=== PATIENT | female | born 1945 | race Asian ===

== ENCOUNTER 2018-04-06 06:58 | Day surgery (SDC) | payer OTHER ==
[2018-04-06 07:37] VITALS: BMI 23.0
[2018-04-06 09:01] VITALS: TEMP 97.8
[2018-04-06] MEDS ORDERED: ACETAMINOPHEN 325 MG TABLET (FP) ONE (09:28)
[2018-04-06 10:21] VITALS: BP 142/69; PULSE 46
--- NOTE | 2018-04-07 11:44 | PATH ---
Surgical Pathology Report Patient Name: [facility]. Rec. #: [id number] /Age/Gender: 1945 (Age: 72) / F Account: [id number] Location: [facility]-ENDOSCOPY Taken: 04/06/2018 Received: 04/06/2018 Reported: 04/07/2018 Physicians: Gunnar Restrepo M.D. Specimen(s) Received A: BX DUODENUM B: BX GASTRIC ANTRUM C: BX ANTRUM POLYP D: RECTAL POLYP Clinical History History of colon polyps/gastric intestinal metaplasia Postoperative diagnosis: Gastric polyps, diverticulosis Final Diagnosis A. DUODENUM, SECOND PORTION AND BULB, BIOPSY: DUODENAL MUCOSA WITHOUT SIGNIFICANT PATHOLOGIC FINDINGS. B. STOMACH, ANTRUM AND BODY, BIOPSY: GASTRIC ANTRAL AND BODY MUCOSA WITH MILD TO MODERATE CHRONIC GASTRITIS AND INTESTINAL METAPLASIA. IMMUNOHISTOCHEMICAL STAIN FOR H. PYLORI IS NEGATIVE. C. STOMACH, ANTRAL POLYP, BIOPSY: POLYPOID GASTRIC ANTRAL MUCOSA WITH MILD CHRONIC GASTRITIS, RARE DILATED GLAND, AND MILD FOVEOLAR HYPERPLASIA SUGGESTIVE OF HYPERPLASTIC POLYP. IMMUNOHISTOCHEMICAL STAIN FOR H. PYLORI IS NEGATIVE. D. RECTUM, POLYP, BIOPSY: TUBULAR ADENOMA. Electronically Signed Cristina Cohen M.D. Gross Description A. Received in formalin, labeled "biopsy second portion of duodenum and bulb" are 3 mosley, irregular portions of soft tissue ranging from 0.3-0.4 cm. in greatest dimension. The specimens are submitted in toto in one cassette. B. Received in formalin, labeled "gastric antrum and body" are 5 ranging from mosley, irregular portions of soft tissue ranging from 0.2-0.6 cm. in greatest dimension. The specimens are submitted in toto in one cassette. C. Received in formalin, labeled "antral polyp" are 2 mosley, irregular portions of soft tissue measuring 0.1 and 0.5 cm. in greatest dimension. The specimens are submitted in toto in one cassette. D. Received in formalin, labeled "polyp rectum" are 2 mosley, irregular portions of soft tissue measuring 0.2 and 0.3 cm. in greatest dimension. The specimens are submitted in toto in one cassette. 04/06/201804/06/2018
== END 2018-04-06 10:23 | disposition home or self-care (01) ==
LOC: JASU-ENDO 06:58
PROVIDERS: ATTEND Internal Medicine Gastroenterology
PROC: 0DB68ZX Excision of Stomach, Via Natural or Artificial Opening Endoscopic, Diagnostic (ICD-10-PCS; 2018-04-06)
PROC: 0DBP8ZX Excision of Rectum, Via Natural or Artificial Opening Endoscopic, Diagnostic (ICD-10-PCS; principal; 2018-04-06 08:00)
DX: Z12.11 Encounter for screening for malignant neoplasm of colon (principal); K62.1 Rectal polyp; K64.8 Other hemorrhoids; K57.30 Diverticulosis of large intestine without perforation or abscess without bleeding; K31.7 Polyp of stomach and duodenum
CPT/HCPCS: 88305-TC; 88342-TC

== ENCOUNTER 2019-12-25 18:53 | Observation (INO) | payer OTHER ==
--- NOTE | 2019-12-25 19:21 | PDOC ---
Rapid Medical Evaluation Chief Complaint: Headache Time Seen by Provider: 12/25/19 19:14 Medical Evaluation: Allergies Allergy/AdvReac Type Severity Reaction Status Date / Time aspirin Allergy Verified 05/03/13 23:23 latex Allergy Verified 04/05/18 14:11 Penicillins Allergy Verified 05/03/13 23:23 12/25/19 19:16 74 YEAR OLD female c/o headache, dizziness,blurred vision, chest discomfort since last night at 12 am. patient took amlodipine at 3.30 am (extra dose) and took morning dose of b/p meds. patient reported b/p normal at 11.30 am. afternoon noted to have high blood pressure now with headache and dizziness. PMHX: high blood pressure, hypercholestremia PCP: Dr. August (henderson) PE: patient alert ox3. A: hypertension; headache/ dizziness P: labs EKG 12/25/19 19:21 Discharge Disposition - Diagnosis Dizziness Headache Qualifiers: Headache type: unspecified Headache chronicity pattern: unspecified pattern Intractability: not intractable Qualified Code(s): R51 - Headache - Referrals - Patient Instructions - Post Discharge Activity
--- NOTE | 2019-12-25 20:16 | PDOC ---
History of Present Illness - General Chief Complaint: Headache Stated Complaint: HYPERTENSION/HEADACHE/DIZZY Time Seen by Provider: 12/25/19 19:14 - History of Present Illness Initial Comments: 12/25/19 20:16 74yo F PMH HTN p/w multiple episodes of chest discomfort, one episode of dizziness, one episode of blurry vision, and one episode of SBP to 170s. Over the past few days she has had trouble sleeping. Today she awoke from a nap and had blurry vision and then later felt dizzy when trying to stand up from sitting. While dizzy she took her BP and was discovered to be in the 170s. She is usually in the 120s-130s. Denies LOC, n/v/fever/cough/sore throat/ leg swelling/ recent illness Since July she has had PFT (normal), halter monitoring (Overall normal w/ few ectopic atrial beats), and claims angiogram that was normal. PMH: HTN PSH: total hysterectomy FHx: VT in father SHx: no ETOH, tobacco, street drugs 12/25/19 22:40 ROS CONSTITUTIONAL: Absent: fever, chills, diaphoresis, generalized weakness HEENT: Absent: rhinorrhea, nasal congestion, throat pain CARDIOVASCULAR: Absent: syncope, lightheadedness, peripheral edema RESPIRATORY: Absent: cough, shortness of breath, dyspnea with exertion, orthopnea, wheezing, stridor, hemoptysis GASTROINTESTINAL: Absent: abdominal pain, abdominal distension, nausea, vomiting GENITOURINARY: Absent: dysuria, vaginal bleeding MUSCULOSKELETAL: Absent: myalgia, SKIN: Absent: rash, itching, pallor NEUROLOGIC: Absent: focal weakness or paresthesias PSYCHIATRIC: Absent: anxiety PE GENERAL: Well developed, well nourished. Awake and alert. No acute distress. HEENT: Normocephalic, atraumatic. PERRLA, EOMI. No conjunctival pallor. Sclera are non- icteric. Moist mucous membranes. Oropharynx is clear. NECK: Supple. Full ROM. No JVD. CARDIOVASCULAR: Regular rate and rhythm. No murmurs, rubs, or gallops. Distal pulses are 2+ and symmetric. PULMONARY: No evidence of respiratory distress. Lungs clear to auscultation bilaterally. No wheezing, rales or rhonchi. ABDOMINAL: Soft. Non-tender. Non-distended. No rebound or guarding. No organomegaly. Normoactive bowel sounds. MUSCULOSKELETAL Normal range of motion at all joints. No bony deformities or tenderness. No CVA tenderness. EXTREMITIES: No cyanosis. No clubbing. No edema. No calf tenderness. SKIN: Warm and dry. Normal capillary refill. No rashes. No jaundice. NEUROLOGICAL: Alert, awake, appropriate. . Gait is normal without ataxia. PSYCHIATRIC: Cooperative. Good eye contact. Worried mood. a/p 74yo F w/PMH HTN p/w 1episode of blurry vision + dizziness at home associated w/ elevated BP. Became hypertensive and reported chest discomfort around 1245. Repeated EKG and gave 0.4mg SL nitro. EKG showed no changes. Pt reported relief. plan: admit to tele obs. 12/25/19 22:46 12/26/19 03:09 12/26/19 03:10 Past History - Medical History Allergies/Adverse Reactions: Allergies Allergy/AdvReac Type Severity Reaction Status Date / Time aspirin Allergy Verified 05/03/13 23:23 latex Allergy Verified 04/05/18 14:11 Penicillins Allergy Verified 05/03/13 23:23 Home Medications: Ambulatory Orders Amlodipine Besylate [Norvasc -] 5 mg PO DAILY 04/05/18 Calcium Carbonate/Vitamin D3 [Calcium 500-Vit D3 125 Caplet] 1 each PO DAILY 04/05/18 Cholecalciferol (Vitamin D3) [Vitamin D3] 5,000 unit PO WEEKLY 04/05/18 Glucosamine Sulfate Dipot Chlr [Glucosamine] 1,000 mg PO DAILY 04/05/18 Losartan Potassium 25 mg PO HS 04/05/18 Multivitamin [Multiple Vitamins] 1 each PO DAILY 04/05/18 Anemia: No Asthma: No Cancer: No Cardiac Disorders: No CVA: No COPD: No CHF: No Dementia: No Diabetes: No GI Disorders: Yes (GERD, HIATAL HERNIA, GASTRITIS W/ METAPLASIA, EXCISION ADENOMAS, DIVERTICUL) Disorders: No HTN: Yes Hypercholesterolemia: Yes Liver Disease: No Seizures: No Thyroid Disease: No - Surgical History Appendectomy: Yes Neurologic Surgery: No Orthopedic Surgery: Yes (RIGHT SHOULDER SURGERY, wrist & ankle fx) - Immunization History Immunization Up to Date: No - Psycho-Social/Smoking History Smoking Status: No Smoking History: Never smoked Have you smoked in the past 12 months: No Number of Cigarettes Smoked Daily: 0 - Substance Abuse Hx (Audit-C & DAST Scrn) How often the patient has a drink containing alcohol: Never Score: In Men: 4 or > Positive; In Women: 3 or > Positive: 0 Screen Result (Pos requires Nsg. Audit-10AR): Negative *Physical Exam - Vital Signs Last Vital Signs Temp Pulse Resp BP Pulse Ox 98.2 F 72 18 144/71 98 12/25/19 19:18 12/25/19 19:18 12/25/19 19:18 12/25/19 19:18 12/25/19 19:18 ED Treatment Course - LABORATORY CBC & Chemistry Diagram: 12/25/19 21:50 12/25/19 21:50 Discharge - Discharge Information Problems reviewed: Yes Clinical Impression/Diagnosis: Near syncope, Palpitations Condition: Stable - Admission Yes - Follow up/Referral - Patient Discharge Instructions - Post Discharge Activity
--- NOTE | 2019-12-25 20:23 | PDOC ---
Attending Attestation - Resident Resident Name: IvettChandrakant Senia - ED Attending Attestation I have performed the following: I have examined & evaluated the patient, The case was reviewed & discussed with the resident, I agree w/resident's findings & plan - HPI HPI: 12/25/19 22:00 see resident hpi - Physicial Exam PE: 12/25/19 22:00 see resident exam - Medical Decision Making 12/25/19 22:00 74-year-old female with chest discomfort, possible palpitations with lightheadedness yesterday Symptoms resolved, she has also had elevated blood pressures which is what prompted her to come to the emergency department Per patient she has been unable to contact her 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
[2019-12-25 22:40] LABS: BASO % 0.8 % (0-2.0); EOS % 0.5 % (0-4.5); HEMATOCRIT 37.8 % (32.4-45.2); LYMPH % 43.2 % (8-40); MCH 32.2 pg (25.7-33.7); MCHC 34.4 g/dl (32.0-36.0); MEAN CELL VOLUME 93.5 fl (80-96); MEAN PLT VOLUME 7.9 fl (7.5-11.1); MONO % 9.5 % (3.8-10.2); PLATELET COUNT 273 K/MM3 (134-434); RBC 4.04 M/mm3 (3.60-5.2); RDW 13.7 % (11.6-15.6); WHITE BLOOD COUNT 5.7 K/mm3 (4.0-10.0)
[2019-12-25 22:50] LABS: INR 0.85 (0.83-1.09)
[2019-12-25 22:53] LABS: ACTIVATED PTT 36.4 SECONDS (25.2-36.5)
[2019-12-25 23:25] LABS: ALBUMIN 4.3 g/dl (3.4-5.0); ALK PHOS 57 U/L (45-117); ANION GAP 7 MMOL/L (8-16); BILIRUBIN,TOTAL 0.5 mg/dL (0.2-1); BLOOD UREA NITROGEN 9.8 mg/dL (7-18); CALCIUM 9.2 mg/dL (8.5-10.1); CHLORIDE 106 mmol/L (98-107); CO2 28 mmol/L (21-32); CREATININE 0.5 mg/dL (0.55-1.3); GLUCOSE,RANDOM 103 mg/dL (74-106); MAGNESIUM 2.4 mg/dL (1.8-2.4); POTASSIUM 3.9 mmol/L (3.5-5.1); SGOT/AST 37 U/L (15-37); SGPT/ALT 31 U/L (13-61); SODIUM 140 mmol/L (136-145); TOT PROT 7.8 g/dl (6.4-8.2)
[2019-12-25] MEDS ORDERED: LACTATED RINGERS SOLUTION 1000 ML INFUS.BAG IV ONE (23:36)
--- NOTE | 2019-12-26 00:48 | PN ---
Teaching Attending Note Name of Resident: Nishant Gutierrez ATTENDING PHYSICIAN STATEMENT I saw and evaluated the patient. I reviewed the resident's note and discussed the case with the resident. I agree with the resident's findings and plan as documented. SUBJECTIVE: Patient is a 74 year old woman with a PMH of Total hysterectomy, GERD, Hiatal hernai, Penicillin allergy, Gastritis and HTN presenting with multiple episodes of chest discomfort, one episode of dizziness, one episode of blurry vision, and one episode of SBP to the 170s. Over the past few days she has had trouble sleeping. Today she awoke from a nap and had blurry vision and then later felt dizzy when trying to stand up from sitting. While dizzy she took her BP and discovered it to be in the 170s. She is usually in the 120s-130s. Patient denies LOC, shortness of breath, abdominal pain, palpitations, fever, chills, nausea, vomiting, diarrhea, constipation, dysuria, frequency, urgency, melena, hematochezia or hematuria. 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 Denies alcohol, tobacco or illicit drug use. No sick contacts or recent travels. Has family history of CVA and HTN in both parents and DM in father. OBJECTIVE: Alert Vital Signs Period Temp Pulse Resp BP Sys/Wilkerson Pulse Ox Last 24 Hr 98.2 F-98.3 F 64-72 18-18 144-165/71-78 96-100 HEENT: No Jaundice, eye redness or discharge, PERRLA, EOMI. Normocephalic, atraumatic. External ears are normal and hearing is grossly intact. No nasal discharge. Neck: Supple, nontender. No palpable adenopathy or thyromegaly. No JVD Chest: Good effort. Clear to auscultation and percussion. Heart: Regular. No S3, rub or murmur Abdomen: Not distended, soft, nontender and no HSM. No rebound or guarding. Normal bowel sounds. Ext: Peripheral pulses intact. No leg edema. Skin: Warm and dry. No petechiae, rash or ecchymosis. Neuro: Alert. Oriented x3. CN 2-12 grossly intact. Sensation grossly intact in all four extremities and DTR are symmetric. Psych: Appropriate mood and affect. Good insight. Home Medications Medication Instructions Recorded Amlodipine Besylate [Norvasc -] 5 mg PO DAILY 04/05/18 Calcium Carbonate/Vitamin D3 1 each PO DAILY 04/05/18 [Calcium 500-Vit D3 125 Caplet] Cholecalciferol (Vitamin D3) 5,000 unit PO WEEKLY 04/05/18 [Vitamin D3] Glucosamine Sulfate Dipot Chlr 1,000 mg PO DAILY 04/05/18 [Glucosamine] Losartan Potassium 25 mg PO HS 04/05/18 Multivitamin [Multiple Vitamins] 1 each PO DAILY 04/05/18 Abnormal Lab Results 12/25/19 12/25/19 21:50 21:50 Lymphocytes % 43.2 H Anion Gap 7 L Creatinine 0.5 L TSH 3.77 H Current Medications Generic Name Dose Route Start Last Admin Trade Name Freq PRN Reason Stop Dose Admin Amlodipine Besylate 5 mg 12/26/19 10:00 Norvasc - PO DAILY [facility] Enoxaparin Sodium 40 mg 12/26/19 10:00 Lovenox - SQ DAILY [facility] HCTZ/Losartan Potassium 1 tab 12/26/19 10:00 Hyzaar - PO DAILY [facility] Multivitamins/Minerals/Vitamin C 1 tab 12/26/19 10:00 Tab-A-Vit - PO DAILY [facility] Non-Formulary Medication 1 each 12/26/19 10:00 Calcium Carbonate/Vitamin D3 [Calcium 500-Vit D3 125 Caplet] PO DAILY [facility] Non-Formulary Medication 1,000 mg 12/26/19 10:00 Glucosamine Sulfate Dipot Chlr [Glucosamine] PO DAILY [facility] Non-Formulary Medication 5,000 unit 12/26/19 01:00 Cholecalciferol (Vitamin D3) [Vitamin D3] PO WEEKLY KAREN Pantoprazole Sodium 20 mg 12/26/19 10:00 Protonix - PO DAILY [facility] ASSESSMENT AND PLAN: 1. Uncontrolled hypertension - Symptoms may be related to poorly controlled hypertension. No acute abnormality on CXR. Noncontrast head CT scan showed volume loss but no evidence of acute intracranial pathology. EKG shows NSR at 71/minute and QTc [address]-T wave changes. Initial troponin is negative. Will admit to telemetry, trend troponin, get ECHO, free T4, carotid doppler, fasting lipids, brain MRI, do neurochecks and implement fall/aspiration/seizure precautions. Consult Cardiology/PT/Neurology. Considering her unwillingness to take medications, will recommend stopping "non essential" drugs like Glucosamine, Multivitamins and Vitamin D3. Will restart suitable outpatient antihypertensive drugs and give HCTZ/Losartan combination to enhance adherence. Subsequently, will revise regimen to ensure [id number] excellent BP control. Patient counseled on the injurious effects of uncontrolled hypertension. Nonpharmacologic measures to control hypertension like weight loss, salt restriction and exercise stressed. Importance of adherence to treatment regimen and attainment of normotension emphasized. Viral testing for COVID-19 ordered and patient placed on airborne, droplet and contact isolation. Will continue comprehensive care for all of patients comorbid conditions. 2. DVT prophylaxis - Lovenox 40 mg SQ q 24 hours. 3. Advance directives - Full code
[2019-12-26] MEDS ORDERED: NITROGLYCERIN SUBLINGUAL 1/150 0.4 MG TAB SL ONE (01:02)
[2019-12-26] MEDS ORDERED: NITROGLYCERIN SUBLINGUAL 1/150 0.4 MG TAB ONE (01:07)
[2019-12-26 01:37] LABS: PH,URINE 6.5 (5.0-8.0); URINE APPEARANCE CLEAR; URINE BILIRUBIN NEGATIVE (NEGATIVE); URINE COLOR YELLOW; URINE GLUCOSE (UA) NEGATIVE (NEGATIVE); URINE KETONE NEGATIVE (NEGATIVE); URINE LEUK ESTERASE NEGATIVE (NEGATIVE); URINE NITRITE NEGATIVE (NEGATIVE); URINE PROTEIN NEGATIVE (NEGATIVE); URINE UROBILINOGEN 0.2 mg/dL (0.2-1.0)
--- NOTE | 2019-12-26 05:15 | HP ---
HISTORY OF PRESENT ILLNESS: This is a 74 y/o F with a PMHx GERD, gastritis and HTN now presenting to the ED with multiple episodes of pressure-like substernal chest discomfort. Usually gradual in onset, non radiating, relieved by rest and nitroglycerine. Usually accompanied by DUTTON, dizziness, blurry vision and a SBP up to the 170s. Pt says she whenever she experiences the symptoms, it signals to her that her BP is elevated and she is usually right. She notes that she doesn't like taking many meds and has been refusing to allow her apiculture teacher to add a new med since withdrawing her atenolol due to bradycardia. In recent times, she has had poor appetite and difficulty falling asleep. Today she developed blurry vision and dizziness when she attempted standing from a sitting position after her nap. She admits to keeping a log journal of all her BP's and they usually are normal. Patient denies LOC, shortness of breath, abdominal pain, palpitations, fever, chills, nausea, vomiting, diarrhea, constipation, dysuria, frequency, urgency, hematochezia or hematuria. 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 ER course was notable for: (1)No acute abnormality on CXR. (2)Initial troponin is negative. (3)Noncontrast head CT scan showed volume loss but no evidence of acute intracranial pathology. EKG shows NSR at 71/minute and QTc [address]-T wave changes. Recent Travel: denies PAST SURGICAL HISTORY: [facility] FHx: Has family history of CVA and HTN in both parents and DM in father. Social History: Smoking:denies Alcohol:denies Drugs: denies Allergies: All allergies below presents with facial and angioedema aspirin Allergy latex Allergy Penicillins Allergy Home Medications Medication Instructions Recorded Amlodipine Besylate [Norvasc -] 5 mg PO DAILY 04/05/18 Calcium Carbonate/Vitamin D3 1 each PO DAILY 04/05/18 [Calcium 500-Vit D3 125 Caplet] Cholecalciferol (Vitamin D3) 5,000 unit PO WEEKLY 04/05/18 [Vitamin D3] Glucosamine Sulfate Dipot Chlr 1,000 mg PO DAILY 04/05/18 [Glucosamine] Losartan Potassium 25 mg PO HS 04/05/18 Multivitamin [Multiple Vitamins] 1 each PO DAILY 04/05/18 REVIEW OF SYSTEMS Negative except as in HPI PHYSICAL EXAMINATION Vital Signs - 24 hr 12/25/19 12/26/19 12/26/19 19:18 00:36 01:14 Temperature 98.2 F 98.3 F Pulse Rate 72 Pulse Rate [ 64 67 Left Radial] Respiratory 18 18 18 Rate Blood Pressure 144/71 Blood Pressure 154/78 165/77 [Right Arm] O2 Sat by Pulse 98 96 100 Oximetry (%) 12/26/19 12/26/19 12/26/19 01:29 01:53 02:59 Temperature 98.6 F Pulse Rate Pulse Rate [ 62 67 Left Radial] Respiratory 18 18 Rate Blood Pressure Blood Pressure 151/74 129/72 [Right Arm] O2 Sat by Pulse 100 100 98 Oximetry (%) GENERAL: Awake, alert, and fully oriented NECK: no thyromegaly or nodules appreciated LUNGS: Vesicular Breath sounds equal, clear to auscultation bilaterally. No wheezes, and no crackles. No signs of respiratory distress HEART: Regular rate and rhythm, normal S1 and S2 without murmur, rub or gallop. ABDOMEN: Soft, flat, nontender, no hepatomegaly/splenomegal. MUSCULOSKELETAL: No LOWER EXTREMITIES: 2+ pulses, warm, well-perfused. No calf tenderness. No peripheral edema. Power 5/5 NEUROLOGICAL: Cranial nerves II-XII intact. Normal speech. Normal gait. Power 5/5 PSYCHIATRIC: Cooperative. Good eye contact. Appropriate mood and affect. Laboratory Results - last 24 hr 12/25/19 12/25/19 12/25/19 21:50 21:50 21:50 WBC 5.7 RBC 4.04 Hgb 13.0 Hct 37.8 MCV 93.5 MCH 32.2 MCHC 34.4 RDW 13.7 Plt Count 273 MPV 7.9 Absolute Neuts (auto) 2.6 Neutrophils % 46.0 Lymphocytes % 43.2 H Monocytes % 9.5 Eosinophils % 0.5 Basophils % 0.8 Nucleated RBC % 0 PT with INR 10.00 INR 0.85 PTT (Actin FS) 36.4 Sodium 140 Potassium 3.9 Chloride 106 Carbon Dioxide 28 Anion Gap 7 L BUN 9.8 Creatinine 0.5 L Est GFR (CKD-EPI)AfAm 109.73 Est GFR (CKD-EPI)NonAf 94.67 Random Glucose 103 Calcium 9.2 Magnesium 2.4 Total Bilirubin 0.5 AST 37 ALT 31 Alkaline Phosphatase 57 Creatine Kinase 118 Troponin I < 0.02 Total Protein 7.8 Albumin 4.3 TSH 3.77 H Urine Color Urine Appearance Urine pH Ur Specific [place] Urine Protein Urine Glucose (UA) Urine Ketones Urine Blood Urine Nitrite Urine Bilirubin Urine Urobilinogen Ur Leukocyte Esterase 12/26/19 12/26/19 00:00 02:18 WBC RBC Hgb Hct MCV MCH MCHC RDW Plt Count MPV Absolute Neuts (auto) Neutrophils % Lymphocytes % Monocytes % Eosinophils % Basophils % Nucleated RBC % PT with INR INR PTT (Actin FS) Sodium Potassium Chloride Carbon Dioxide Anion Gap BUN Creatinine Est GFR (CKD-EPI)AfAm Est GFR (CKD-EPI)NonAf Random Glucose Calcium Magnesium Total Bilirubin AST ALT Alkaline Phosphatase Creatine Kinase Troponin I < 0.02 Total Protein Albumin TSH Urine Color Yellow Urine Appearance Clear Urine pH 6.5 Ur Specific [place] 1.007 L Urine Protein Negative Urine Glucose (UA) Negative Urine Ketones Negative Urine Blood Negative Urine Nitrite Negative Urine Bilirubin Negative Urine Urobilinogen 0.2 Ur Leukocyte Esterase Negative ASSESSMENT/PLAN: This is a 74 y/o F with a PMHx GERD, gastritis and HTN, presenting with multiple episodes of pressure-like substernal chest discomfort, DUTTON, dizziness, and blurry vision, accompanied by a SBP to the 170s. Pt describes these symptoms occur whenever her BP is elevated. #Poorly controlled hypertension/presyncope - likely due to patient refusal of taking more medications for her BP - Symptoms of dizziness, blurred vision and headache may be related to poorly controlled hypertension. - No acute abnormality on CXR. - Noncontrast head CT scan showed volume loss but no evidence of acute intracranial pathology. - Will monitor on telemetry, trend troponin until negative X3, get ECHO, carotid doppler, fasting lipids, brain MRI, do neurochecks and implement fall/aspiration/seizure precautions. - Consult Cardiology (Dr. August her apiculture teacher)/PT/Neurology (Dr. Faye). Considering her unwillingness to take medications, will recommend stopping "non essential" drugs like Glucosamine, Multivitamins and Vitamin D3. - start HCTZ/Losartan combination to enhance adherence. - salt restriction and exercise stressed. - Viral testing for COVID-19 ordered and patient placed on airborne, droplet and contact isolation. Will continue comprehensive care for all of patients comorbid conditions. #GERD - protonix 20 daily - pt endorsed having black stool episode but is on multivitamin, egd and colon negative in 2018 per patient but she would like Dr. Tg HARDY to see her while she is here although at this time no inpatient need for GI consult. Can f/u as o/p. 2. DVT prophylaxis - Lovenox 40 mg SQ q 24 hours. 3. Advance directives - Full code Visit type - Medication Review Med list reviewed for High Risk Meds patients 65 and older: No - Emergency Visit Emergency Visit: Yes ED Registration Date: 12/25/19 Care time: The patient presented to the Emergency Department on the above date and was hospitalized for further evaluation of their emergent condition. - New Patient This patient is new to me today: Yes Date on this admission: 12/25/19 - Critical Care Critical Care patient: No ATTENDING PHYSICIAN STATEMENT I saw and evaluated the patient. I reviewed the resident's note and discussed the case with the resident. I agree with the resident's findings and plan as documented. SUBJECTIVE: OBJECTIVE: ASSESSMENT AND PLAN:
--- NOTE | 2019-12-26 07:24 | CON.CARD ---
Cardiology Consult (text) - Consultation Consultation Note: Chief Complaint: Events noted, notes reviewed, evaluation of chest pain syndrome in association with elevated home blood pressure measurements, dizziness and li ghtheadedness History of Present Illness: Seen and examined in the ER as telemetry hold. Full consult dictated Medications: Current Medications Generic Name Dose Route Start Last Admin Trade Name Dorie PRN Reason Stop Dose Admin Amlodipine Besylate 5 mg 12/26/19 10:00 Norvasc - PO DAILY KAREN Calcium Carbonate/Cholecalciferol 1 tab 12/26/19 10:00 Os-Roberth 500+D - PO DAILY KRAEN Enoxaparin Sodium 40 mg 12/26/19 10:00 Lovenox - SQ DAILY KAREN HCTZ/Losartan Potassium 1 tab 12/26/19 10:00 Hyzaar - PO DAILY KAREN Multivitamins/Minerals/Vitamin C 1 tab 12/26/19 10:00 Tab-A-Vit - PO DAILY KAREN Non-Formulary Medication 1,000 mg 12/26/19 10:00 Glucosamine Sulfate Dipot Chlr [Glucosamine] PO DAILY KAREN Non-Formulary Medication 5,000 unit 12/26/19 01:00 Cholecalciferol (Vitamin D3) [Vitamin D3] PO WEEKLY KAREN Pantoprazole Sodium 20 mg 12/26/19 10:00 Protonix - PO DAILY [facility] Review of Systems - Review of Systems Constitutional: denies: Chills, Fever Cardiovascular: As noted above Respiratory: denies: Cough or Sputum Production Gastrointestinal: denies: Nausea, Vomiting, diarrhea, Constipation or Abdominal Pain Musculoskeletal: denies: Joint Pain Neurological: reports: Headaches Vital Signs: Last Vital Signs Temp Pulse Resp BP Pulse Ox 98.3 F 66 16 123/73 97 12/26/19 07:02 12/26/19 07:02 12/26/19 07:02 12/26/19 07:02 12/26/19 07:02 Intake & Output 12/23/19 12/24/19 12/25/19 12/26/19 23:59 23:59 23:59 23:59 Weight 114 lb Neck: Supple Negative JVD Respiratory: Clear to A&P Bilaterally Cardiovascular: S1 S2 Regular Rate and Rhythm Grade 2/6 systolic ejection murmur Gastrointestinal: Soft Benign Normal Bowel Sounds Ext: No Edema intact distal pulses Labs: Troponin, BNP 12/25/19 12/26/19 21:50 02:18 Troponin I < 0.02 < 0.02 CBC, BMP 12/25/19 21:50 12/25/19 21:50 Hepatic Panel Total Bilirubin 0.5 mg/dL (0.2-1) 12/25/19 21:50 AST 37 U/L (15-37) 12/25/19 21:50 ALT 31 U/L (13-61) 12/25/19 21:50 Alkaline Phosphatase 57 U/L (45-117) 12/25/19 21:50 Albumin 4.3 g/dl (3.4-5.0) 12/25/19 21:50 INR, PTT INR 0.85 (0.83-1.09) 12/25/19 21:50 Assessment/Plan 1. Chest pain syndrome clinical presentation of which is suggestive of coronary artery disease angina pectoris, no evidence of acute coronary syndrome 2. Probable diastolic left ventricular dysfunction with clinical class 0 [place] [employer] classification left ventricular failure 3. Hypertensive cardiovascular disease, labile blood pressure recent therapy adjustment 4. Hypercholesterolemia/hypertriglyceridemia 5. Abnormal TSH value suggestive of hypothyroidism 6. History of gastroesophageal reflux disease PLAN: 1. Ideally resumption of beta-cat therapy is recommended but to be deferred in view of recently noted resting bradycardia- (Patient was on Atenolol therapy which was discontinued in view of resting bradycardia) 2. Continue Cozaar therapy and agree with dose titration to 50 mg once daily 3. Continue Norvasc therapy at 5 mg once daily 4. Recommend the addition of Plavix therapy at 75 mg once daily since patient has Aspirin allergy 5. Recommend the addition of statin therapy/Crestor 10 mg once daily or Lipitor 20 mg once daily 6. Since patient currently is asymptomatic and there is no evidence of acute coronary syndrome patient can be discharged home for additional outpatient cardiovascular evaluation, follow-up to be scheduled with Dr. Panchito August at [phone] Tee Mendoza MD
[2019-12-26] MEDS ORDERED: amLODIPine BESYLATE 2.5 MG TABLET (FP) ONE (08:56)
[2019-12-26] MEDS ORDERED: MULTIVITAMINS (DAILY MVI) TABLET (FP) ONE (08:56)
[2019-12-26 09:06] LABS: HEMATOCRIT 37.7 % (32.4-45.2); HEMOGLOBIN 12.6 GM/dL (10.7-15.3); MCH 31.3 pg (25.7-33.7); MCHC 33.5 g/dl (32.0-36.0); MEAN CELL VOLUME 93.3 fl (80-96); PLATELET COUNT 224 K/MM3 (134-434); RBC 4.04 M/mm3 (3.60-5.2); RDW 13.1 % (11.6-15.6); WHITE BLOOD COUNT 6.2 K/mm3 (4.0-10.0)
[2019-12-26 09:34] LABS: ALBUMIN 4.2 g/dl (3.4-5.0); ALK PHOS 54 U/L (45-117); ANION GAP 6 MMOL/L (8-16); BILIRUBIN,TOTAL 0.5 mg/dL (0.2-1); BLOOD UREA NITROGEN 9.3 mg/dL (7-18); CALCIUM 8.9 mg/dL (8.5-10.1); CHLORIDE 106 mmol/L (98-107); CHOLESTEROL 212 mg/dL (50-200); CO2 28 mmol/L (21-32); CREATININE 0.6 mg/dL (0.55-1.3); GLUCOSE,RANDOM 99 mg/dL (74-106); HDL CHOLESTEROL 47 mg/dL (40-60); LDL CHOLESTEROL (ONLY SJRH) 123 mg/dL (5-100); MAGNESIUM 2.4 mg/dL (1.8-2.4); PHOSPHOROUS 3.8 mg/dL (2.5-4.9); POTASSIUM 3.8 mmol/L (3.5-5.1); SGOT/AST 28 U/L (15-37); SGPT/ALT 29 U/L (13-61); SODIUM 140 mmol/L (136-145); TOT PROT 7.6 g/dl (6.4-8.2); TRIGLYCERIDES 189 mg/dL (0-150)
--- NOTE | 2019-12-26 09:55 | PN ---
Physical Exam: SUBJECTIVE: Patient seen and examined in the ED awaiting bed assignment. She is sitting up, speaking in clear sentences. Denies shortness of breath or chest pain. She feels well but concerned over her elevated BP. 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 Mariangel Flanagan. She is in agreement to have the brain MRI. Denies any visual defects or dizziness on exam. OBJECTIVE: Patient is a 74 year old female who presents to the ED on 12/25/2019 with lightheadedness, elevated BP and multiple episodes of pressure-like substernal chest discomfort, gradual in onset, non radiating. Chest discomfort relieved by rest and nitroglycerine. Period Temp Pulse Resp BP Sys/Wil[place]erson Pulse Ox Last 24 Hr 98.2 F-98.6 F 62-82 16-18 123-165/71-78 96-100 GENERAL: The patient is awake, alert, and fully oriented, in no acute distress. HEAD: Normal with no signs of trauma. EYES: PERRL, extraocular movements intact, sclera anicteric, conjunctiva clear. No ptosis. ENT: Ears normal, nares patent, oropharynx clear without exudates NECK: Trachea midline, full range of motion, supple. LUNGS: Breath sounds equal, clear to auscultation bilaterally, no wheezes HEART: Regular rate and rhythm . ABDOMEN: Soft, nontender, nondistended, normoactive bowel sounds EXTREMITIES: no edema. NEUROLOGICAL: Normal speech, gait not observed. +facial symmetry PSYCH: Normal mood, normal affect. SKIN: Warm, dry, normal turgor, no rashes or lesions noted Laboratory Results - last 24 hr 12/25/19 12/25/19 12/25/19 21:50 21:50 21:50 WBC 5.7 RBC 4.04 Hgb 13.0 Hct 37.8 MCV 93.5 MCH 32.2 MCHC 34.4 RDW 13.7 Plt Count 273 MPV 7.9 Absolute Neuts (auto) 2.6 Neutrophils % 46.0 Lymphocytes % 43.2 H Monocytes % 9.5 Eosinophils % 0.5 Basophils % 0.8 Nucleated RBC % 0 PT with INR 10.00 INR 0.85 PTT (Actin FS) 36.4 Sodium 140 Potassium 3.9 Chloride 106 Carbon Dioxide 28 Anion Gap 7 L BUN 9.8 Creatinine 0.5 L Est GFR (CKD-EPI)AfAm 109.73 Est GFR (CKD-EPI)NonAf 94.67 Random Glucose 103 Calcium 9.2 Phosphorus Magnesium 2.4 Total Bilirubin 0.5 AST 37 ALT 31 Alkaline Phosphatase 57 Creatine Kinase 118 Troponin I < 0.02 Total Protein 7.8 Albumin 4.3 Triglycerides Cholesterol Total LDL Cholesterol HDL Cholesterol TSH 3.77 H Thyroxine (T4) Resin T3 Uptake Urine Color Urine Appearance Urine pH Ur Specific [place] Urine Protein Urine Glucose (UA) Urine Ketones Urine Blood Urine Nitrite Urine Bilirubin Urine Urobilinogen Ur Leukocyte Esterase 12/26/19 12/26/19 12/26/19 00:00 02:18 09:00 WBC 6.2 RBC 4.04 Hgb 12.6 Hct 37.7 MCV 93.3 MCH 31.3 MCHC 33.5 RDW 13.1 Plt Count 224 MPV 8.0 Absolute Neuts (auto) Neutrophils % Lymphocytes % Monocytes % Eosinophils % Basophils % Nucleated RBC % PT with INR INR PTT (Actin FS) Sodium Potassium Chloride Carbon Dioxide Anion Gap BUN Creatinine Est GFR (CKD-EPI)AfAm Est GFR (CKD-EPI)NonAf Random Glucose Calcium Phosphorus Magnesium Total Bilirubin AST ALT Alkaline Phosphatase Creatine Kinase Troponin I < 0.02 Total Protein Albumin Triglycerides Cholesterol Total LDL Cholesterol HDL Cholesterol TSH Thyroxine (T4) Resin T3 Uptake Urine Color Yellow Urine Appearance Clear Urine pH 6.5 Ur Specific [place] 1.007 L Urine Protein Negative Urine Glucose (UA) Negative Urine Ketones Negative Urine Blood Negative Urine Nitrite Negative Urine Bilirubin Negative Urine Urobilinogen 0.2 Ur Leukocyte Esterase Negative 12/26/19 09:00 WBC RBC Hgb Hct MCV MCH MCHC RDW Plt Count MPV Absolute Neuts (auto) Neutrophils % Lymphocytes % Monocytes % Eosinophils % Basophils % Nucleated RBC % PT with INR INR PTT (Actin FS) Sodium 140 Potassium 3.8 Chloride 106 Carbon Dioxide 28 Anion Gap 6 L BUN 9.3 Creatinine 0.6 Est GFR (CKD-EPI)AfAm 103.34 Est GFR (CKD-EPI)NonAf 89.16 Random Glucose 99 Calcium 8.9 Phosphorus 3.8 Magnesium 2.4 Total Bilirubin 0.5 AST 28 ALT 29 Alkaline Phosphatase 54 Creatine Kinase Troponin I < 0.02 Total Protein 7.6 Albumin 4.2 Triglycerides 189 H Cholesterol 212 H Total LDL Cholesterol 123 H HDL Cholesterol 47 TSH Thyroxine (T4) 8.2 Resin T3 Uptake 34.4 Urine Color Urine Appearance Urine pH Ur Specific [place] Urine Protein Urine Glucose (UA) Urine Ketones Urine Blood Urine Nitrite Urine Bilirubin Urine Urobilinogen Ur Leukocyte Esterase Active Medications Generic Name Dose Route Start Last Admin Trade Name Dorie PRN Reason Stop Dose Admin Amlodipine Besylate 5 mg 12/26/19 10:00 12/26/19 09:08 Norvasc - PO 5 mg DAILY KAREN Administration Atorvastatin Calcium 20 mg 12/26/19 22:00 Lipitor - PO HS KAREN Calcium Carbonate/Cholecalciferol 1 tab 12/26/19 10:00 Os-Roberth 500+D - PO DAILY KAREN Enoxaparin Sodium 40 mg 12/26/19 10:00 Lovenox - SQ DAILY KAREN HCTZ/Losartan Potassium 1 tab 12/26/19 10:00 12/26/19 09:39 Hyzaar - PO 1 tab DAILY KAREN Administration Multivitamins/Minerals/Vitamin C 1 tab 12/26/19 10:00 12/26/19 09:08 Tab-A-Vit - PO 1 tab DAILY KAREN Administration Non-Formulary Medication 1,000 mg 12/26/19 10:00 Glucosamine Sulfate Dipot Chlr [Glucosamine] PO DAILY KAREN Non-Formulary Medication 5,000 unit 12/26/19 01:00 Cholecalciferol (Vitamin D3) [Vitamin D3] PO WEEKLY KAREN Pantoprazole Sodium 20 mg 12/26/19 10:00 Protonix - PO DAILY KAREN ASSESSMENT/PLAN: Problem List - Problems (1) Chest pain Assessment/Plan: chest pain resolved. per cardiology, hold beta blockers in view of resting bradycardia. continue cozaar 50mg daily continue norvasc 5mg daily Start Plavix 75mg daily Continue crestor 10mg, lipitor 20mg daily follow up outpt with Dr. August patient agrees to follow up Code(s): R07.9 - CHEST PAIN, UNSPECIFIED (2) Near syncope Assessment/Plan: resolved. no dizziness, gait steady Code(s): R55 - SYNCOPE AND COLLAPSE (3) Palpitations Assessment/Plan: resolved Code(s): R00.2 - PALPITATIONS Visit type - Emergency Visit Emergency Visit: Yes ED Registration Date: 12/25/19 Care time: The patient presented to the Emergency Department on the above date and was hospitalized for further evaluation of their emergent condition. - New Patient This patient is new to me today: Yes Date on this admission: 01/05/20 - Critical Care Critical Care patient: No - Discharge Referral Referred to [facility] Med P.C.: No - Medication Review Med list reviewed for High Risk Meds patients 65 and older: Yes
[2019-12-26] MEDS ORDERED: CALCIUM 500MG/VIT-D 200 UNITS COMBO TABLET (FP) PO SCH (10:00)
[2019-12-26] MEDS ORDERED: MULTIVITAMINS (DAILY MVI) TABLET (FP) PO SCH (10:00)
[2019-12-26] MEDS ORDERED: HYDROCHLOROTHIAZIDE 12.5 MG CAPSULE (FP) PO SCH (10:00)
[2019-12-26] MEDS ORDERED: amLODIPine BESYLATE 5 MG TABLET (FP) PO SCH (10:00)
[2019-12-26] MEDS ORDERED: PATIENT'S OWN MEDICATION (NON-FORMULARY) (Glucosamine Sulfate Dipot Chlr [Glucosamine] 1,0 PO SCH (10:00)
[2019-12-26] MEDS ORDERED: PANTOPRAZOLE 20 MG TABLET PO SCH (10:00)
[2019-12-26] MEDS ORDERED: LOSARTAN 50MG/HCTZ 12.5MG 1 TAB (FP) PO SCH (10:00)
[2019-12-26] MEDS ORDERED: ENOXAPARIN NA (PORCINE) 40 MG/0.4 ML DISP.SYRIN SQ SCH (10:00)
--- NOTE | 2019-12-26 10:43 | EKG ---
Test Reason : Blood Pressure : / mmHG Vent. Rate : 071 BPM Atrial Rate : 071 BPM P-R Int : 180 ms QRS Dur : 108 ms QT Int : 412 ms P-R-T Axes : 032 044 048 degrees QTc Int : 447 ms POOR DATA QUALITY, INTERPRETATION MAY BE ADVERSELY AFFECTED NORMAL SINUS RHYTHM NORMAL ECG WHEN COMPARED WITH ECG OF 10-MAR-2011 03:41, NO SIGNIFICANT CHANGE WAS FOUND Confirmed by Donald Avery ([id number]) on 12/26/2019 10:43:20 AM Referred By: Confirmed By:Donald Avery
--- NOTE | 2019-12-26 10:44 | EKG ---
Test Reason : Blood Pressure : / mmHG Vent. Rate : 061 BPM Atrial Rate : 061 BPM P-R Int : 192 ms QRS Dur : 106 ms QT Int : 410 ms P-R-T Axes : 026 051 048 degrees QTc Int : 412 ms NORMAL SINUS RHYTHM NORMAL ECG WHEN COMPARED WITH ECG OF 10-MAR-2011 03:41, NO SIGNIFICANT CHANGE WAS FOUND Confirmed by Donald Avery ([id number]) on 12/26/2019 10:43:56 AM Referred By: Confirmed By:Donald Avery
--- NOTE | 2019-12-26 11:30 | CONS ---
DATE OF CONSULTATION: 12/26/2019 CONSULTATION REQUESTED BY: Hospitalist service. CHIEF COMPLAINT: Chest discomfort, evaluation of elevated blood pressure measurements, dizziness and lightheadedness. HISTORY OF PRESENT ILLNESS: A 74-year-old female of [place] descent with known history of hypertensive cardiovascular disease, recently noted resting sinus bradycardia necessitating beta cat therapy discontinuation, history of gastroesophageal reflux disease, who denied any history of diabetes mellitus or hypercholesterolemia, who presented to [facility] with intermittent episodes of retrosternal chest discomfort which are predominantly noted with elevated home blood pressure measurements. As noted above patient's beta cat therapy was discontinued, atenolol therapy and patient then had noted intermittently elevated home blood pressure measurements with associated retrosternal chest discomfort described as heaviness. Symptoms were not exacerbated with physical exertion. Patient in addition had been reporting intermittent dizziness and lightheadedness with intermittent headaches. Patient denied any associated nausea or vomiting. Patient denied any syncopal episodes. Patient did not report any associated palpitations. Patient denies any dyspnea, orthopnea, paroxysmal nocturnal dyspnea or peripheral edema. PAST MEDICAL HISTORY: Hypertensive cardiovascular disease, gastroesophageal reflux disease. SOCIAL HISTORY: Nonsmoker. FAMILY HISTORY: Positive for hypertension and cerebrovascular disease. ALLERGIES: To ASPIRIN, LATEX and PENICILLIN. MEDICAL THERAPY AT HOME: Included Cozaar 25 mg once a day and Norvasc 5 mg once a day. REVIEW OF SYSTEMS: Head and Neck: Denies headache, photophobia, blurring of vision. Respiratory: Denies cough or sputum production. Cardiovascular: As noted above. Gastrointestinal: Denies any nausea, vomiting, diarrhea, abdominal discomfort. Genitourinary: No symptoms reported. PHYSICAL EXAMINATION: Vital Signs: Blood pressure is 123/73 mmHg, pulse rate is 66 beats per minute. Head and Neck: Pupils are equally reactive to light and accommodation. Extraocular muscles are intact. Anicteric sclerae. Negative JVD. No bruit appreciated. Chest: Clear to auscultation and percussion. Cardiovascular: S1-S2 regular, grade 2/6 systolic ejection murmur, no clicks or gallops. Abdomen: Soft, benign, normal bowel sounds. Extremities: Negative edema. Intact distal pulses. No calf tenderness. DATA: Electrocardiogram reveals sinus, within normal limits. Troponin I levels were noted less than 0.02. CBC revealed white cell count 5.7, hemoglobin 13.0, platelet count 273. Basic metabolic profile revealed a sodium 140, potassium 3.9, BUN 9.8, creatinine 0.5, glucose 103. Normal liver function testing. ASSESSMENT: 1. Chest pain syndrome. Clinical presentation which is suggestive of coronary artery disease, angina pectoris. No evidence of acute coronary syndrome. 2. Probable diastolic left ventricular dysfunction with clinical class zero [place] [employer] classification left ventricular failure. 3. Hypertensive cardiovascular disease. Labile blood pressure. Recent therapy adjustment. 4. Hypercholesterolemia/hypertriglyceridemia noted on hospital blood test. 5. Abnormal thyroid stimulating hormone value suggestive of hypothyroidism. 6. History of gastroesophageal reflux disease. 7. Heart murmur, most likely related to aortic valve sclerosis with no clinical evidence of aortic valve stenosis. RECOMMENDATIONS: 1. Ideally resumption of beta cat therapy is recommended but to be deferred in view of recently noted resting bradycardia (patient was on atenolol therapy which was discontinued in view of the above-noted resting bradycardia). 2. Continuation of Cozaar therapy and agree with dose titration to 50 mg once daily. 3. Continue Norvasc therapy at 5 mg once daily. 4. Recommend the addition of Plavix therapy at 75 mg once daily. 5. Recommend the addition of statin therapy/Crestor 10 mg once daily or Lipitor 20 mg once daily. 6. Since patient currently is asymptomatic and there is no evidence of acute coronary syndrome patient can be discharged home for additional outpatient cardiovascular evaluation, patient is to follow up with Dr. Panchito August at [phone]. Thank you for kind referral. XIN SALOMON M.D. [id number]
[2019-12-26 16:29] VITALS: BP 151/83; PULSE 82; TEMP 98.1; BMI 21.2
--- NOTE | 2019-12-26 16:45 | CON.NEURO ---
Consult - Alcohol/Substance Use Hx Alcohol Use: No - Smoking History Smoking history: Never smoked Have you smoked in the past 12 months: No Aproximately how many cigarettes per day: 0 Home Medications - Allergies Allergies/Adverse Reactions: Allergies Allergy/AdvReac Type Severity Reaction Status Date / Time aspirin Allergy Verified 05/03/13 23:23 latex Allergy Verified 04/05/18 14:11 Penicillins Allergy Verified 05/03/13 23:23 - Home Medications Home Medications: Ambulatory Orders Amlodipine Besylate [Norvasc -] 5 mg PO DAILY 04/05/18 Calcium Carbonate/Vitamin D3 [Calcium 500-Vit D3 125 Caplet] 1 each PO DAILY 04/05/18 Cholecalciferol (Vitamin D3) [Vitamin D3] 5,000 unit PO WEEKLY 04/05/18 Glucosamine Sulfate Dipot Chlr [Glucosamine] 1,000 mg PO DAILY 04/05/18 Multivitamin [Multiple Vitamins] 1 each PO DAILY 04/05/18 Amlodipine Besylate [Norvasc -] 5 mg PO DAILY #60 tablet 12/26/19 Atorvastatin Ca [Lipitor] 20 mg PO HS #60 tablet 12/26/19 Clopidogrel Bisulfate [Plavix -] 75 mg PO DAILY #60 tablet 12/26/19 Losartan 50Mg/Hctz 12.5MG [Hyzaar -] 1 tab PO DAILY #60 tablet 12/26/19 Physical Exam-Neuro Vital Signs: Vital Signs Temperature 98.1 F 12/26/19 15:35 Pulse Rate 82 12/26/19 15:35 Respiratory Rate 18 12/26/19 15:35 Blood Pressure 151/83 12/26/19 15:35 O2 Sat by Pulse Oximetry (%) 96 12/26/19 15:35 Labs: CBC, BMP 12/26/19 09:00 12/26/19 09:00 INR, PTT INR 0.85 (0.83-1.09) 12/25/19 21:50 Assessment/Plan CC Presyncope HPI 74 year old female history of GERD,Gastritis, HTN. Patient prestned with chest pain and dizziness, she denies any spinning sensation, or severe headache. She do get mri of brain and ct head and itw as u nreamrkable, except white m atter disease. Pat (1)No acute abnormality on CXR. (2)Initial troponin is negative. (3)Noncontrast head CT scan showed volume loss but no evidence of acute intracranial pathology. EKG shows NSR at 71/minute and QTc [address]-T wave changes. Recent Travel: denies PAST SURGICAL HISTORY: IVANIA FHx: Has family history of CVA and HTN in both parents and DM in father. Social History: Smoking:denies Alcohol:denies Drugs: denies Allergies: All allergies below presents with facial and angioedema aspirin Allergy latex Allergy Penicillins Allergy Home Medications Medication Instructions Recorded Amlodipine Besylate [Norvasc -] 5 mg PO DAILY 04/05/18 Calcium Carbonate/Vitamin D3 1 each PO DAILY 04/05/18 [Calcium 500-Vit D3 125 Caplet] Cholecalciferol (Vitamin D3) 5,000 unit PO WEEKLY 04/05/18 [Vitamin D3] Glucosamine Sulfate Dipot Chlr 1,000 mg PO DAILY 04/05/18 [Glucosamine] Losartan Potassium 25 mg PO HS 04/05/18 Multivitamin [Multiple Vitamins] 1 each PO DAILY 04/05/18 ROS,FH,SH reviewed in chart NEUROLOGICAL EXAMINATION Alert oriented x 3, vss, neck is supple eomi, pupils reactive, no face asymmetry, moving all ext muslce si 5/5 in all ext sensation is normal ct head and mri of brain no acute findings Assessment/Plan Episode of dizziness, seems to be related to anxiety vs hypertension, unlikley to be tia, vertigo , neuro exam is normal. Brain imaging did not show any acute findings Plan: no further recommendation from neuro point of view - she is cleared to be discharged from neuro point of view Thanking you so much Danial Monahan MD
--- NOTE | 2019-12-26 17:44 | DS ---
Physical Exam: SUBJECTIVE: patient seen and examined in the ED awaiting bed assignment. She is sitting up, speaking in clear sentences. Denies shortness of breath or chest pain. She feels well but concerned over her elevated BP. 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 Mariangel Flanagan. She is in agreement to have the brain MRI. Denies any visual defects or dizziness on exam. OBJECTIVE: Patient is a 74 year old female who presents to the ED on 12/25/2019 with lightheadedness, elevated BP and multiple episodes of pressure-like substernal chest discomfort, gradual in onset, non radiating. Vital Signs Period Temp Pulse Resp BP Sys/[place] Pulse Ox Last 24 Hr 98.1 F-98.6 F 62-87 16-69 120-165/68-83 17-100 PHYSICAL EXAM GENERAL: The patient is awake, alert, and fully oriented, in no acute distress. HEAD: Normal with no signs of trauma. EYES: PERRL, extraocular movements intact, sclera anicteric, conjunctiva clear. No ptosis. ENT: Ears normal, nares patent, oropharynx clear without exudates NECK: Trachea midline, full range of motion, supple. LUNGS: Breath sounds equal, clear to auscultation bilaterally, no wheezes HEART: Regular rate and rhythm . ABDOMEN: Soft, nontender, nondistended, normoactive bowel sounds EXTREMITIES: no edema. NEUROLOGICAL: Normal speech, gait not observed. +facial symmetry PSYCH: Normal mood, normal affect. SKIN: Warm, dry, normal turgor, no rashes or lesions noted LABS Laboratory Results - last 24 hr 12/25/19 12/25/19 12/25/19 21:50 21:50 21:50 WBC 5.7 RBC 4.04 Hgb 13.0 Hct 37.8 MCV 93.5 MCH 32.2 MCHC 34.4 RDW 13.7 Plt Count 273 MPV 7.9 Absolute Neuts (auto) 2.6 Neutrophils % 46.0 Lymphocytes % 43.2 H Monocytes % 9.5 Eosinophils % 0.5 Basophils % 0.8 Nucleated RBC % 0 PT with INR 10.00 INR 0.85 PTT (Actin FS) 36.4 Sodium 140 Potassium 3.9 Chloride 106 Carbon Dioxide 28 Anion Gap 7 L BUN 9.8 Creatinine 0.5 L Est GFR (CKD-EPI)AfAm 109.73 Est GFR (CKD-EPI)NonAf 94.67 Random Glucose 103 Calcium 9.2 Phosphorus Magnesium 2.4 Total Bilirubin 0.5 AST 37 ALT 31 Alkaline Phosphatase 57 Creatine Kinase 118 Troponin I < 0.02 Total Protein 7.8 Albumin 4.3 Triglycerides Cholesterol Total LDL Cholesterol HDL Cholesterol TSH 3.77 H Thyroxine (T4) Resin T3 Uptake Urine Color Urine Appearance Urine pH Ur Specific [place] Urine Protein Urine Glucose (UA) Urine Ketones Urine Blood Urine Nitrite Urine Bilirubin Urine Urobilinogen Ur Leukocyte Esterase 12/26/19 12/26/19 12/26/19 00:00 02:18 09:00 WBC 6.2 RBC 4.04 Hgb 12.6 Hct 37.7 MCV 93.3 MCH 31.3 MCHC 33.5 RDW 13.1 Plt Count 224 MPV 8.0 Absolute Neuts (auto) Neutrophils % Lymphocytes % Monocytes % Eosinophils % Basophils % Nucleated RBC % PT with INR INR PTT (Actin FS) Sodium Potassium Chloride Carbon Dioxide Anion Gap BUN Creatinine Est GFR (CKD-EPI)AfAm Est GFR (CKD-EPI)NonAf Random Glucose Calcium Phosphorus Magnesium Total Bilirubin AST ALT Alkaline Phosphatase Creatine Kinase Troponin I < 0.02 Total Protein Albumin Triglycerides Cholesterol Total LDL Cholesterol HDL Cholesterol TSH Thyroxine (T4) Resin T3 Uptake Urine Color Yellow Urine Appearance Clear Urine pH 6.5 Ur Specific [place] 1.007 L Urine Protein Negative Urine Glucose (UA) Negative Urine Ketones Negative Urine Blood Negative Urine Nitrite Negative Urine Bilirubin Negative Urine Urobilinogen 0.2 Ur Leukocyte Esterase Negative 12/26/19 09:00 WBC RBC Hgb Hct MCV MCH MCHC RDW Plt Count MPV Absolute Neuts (auto) Neutrophils % Lymphocytes % Monocytes % Eosinophils % Basophils % Nucleated RBC % PT with INR INR PTT (Actin FS) Sodium 140 Potassium 3.8 Chloride 106 Carbon Dioxide 28 Anion Gap 6 L BUN 9.3 Creatinine 0.6 Est GFR (CKD-EPI)AfAm 103.34 Est GFR (CKD-EPI)NonAf 89.16 Random Glucose 99 Calcium 8.9 Phosphorus 3.8 Magnesium 2.4 Total Bilirubin 0.5 AST 28 ALT 29 Alkaline Phosphatase 54 Creatine Kinase Troponin I < 0.02 Total Protein 7.6 Albumin 4.2 Triglycerides 189 H Cholesterol 212 H Total LDL Cholesterol 123 H HDL Cholesterol 47 TSH Thyroxine (T4) 8.2 Resin T3 Uptake 34.4 Urine Color Urine Appearance Urine pH Ur Specific [place] Urine Protein Urine Glucose (UA) Urine Ketones Urine Blood Urine Nitrite Urine Bilirubin Urine Urobilinogen Ur Leukocyte Esterase HOSPITAL COURSE: Date of Admission:12/25/19 Date of Discharge: 12/26/19 brain mri without evidence of acute infarction Minutes to complete discharge: 60 Discharge Summary Problems reviewed: Yes Reason For Visit: DIZZINESS,HEADACHE Current Active Problems Near syncope (Acute) Palpitations (Acute) Condition: Stable - Instructions Diet, Activity, Other Instructions: Mrs Fierro: You were admitted for chest pain, dizziness and feelings of lighheadness. Your workup was negative Please follow up with Dr. Mariangel Flanagan [phone] NEW MEDICATION LIST: Cozaar (Losartan) 50 mg once daily - this medication is to help control your blood pressure Norvasc 5mg once per day - this medication is to help control your blood pressure START Plavix 75mg once per day since you have an aspirin allergy. This medication is for hypercholesterolemia/hypertriglyceridemia START Lipitor 20mg ONCE per day - your cholesterol levels were elevated (in addition to the Plavix) FOLLOW UPS: Please follow up with your primary care doctor in 1-2 weeks Please follow up with Dr. Mariangel Flanagan (call his office for an appointment) thank you Referrals: Panchito August MD [Staff Physician] - Luke August [Primary Care Provider] - Disposition: HOME - Home Medications Comprehensive Discharge Medication List: Ambulatory Orders Amlodipine Besylate [Norvasc -] 5 mg PO DAILY 04/05/18 Calcium Carbonate/Vitamin D3 [Calcium 500-Vit D3 125 Caplet] 1 each PO DAILY 04/05/18 Cholecalciferol (Vitamin D3) [Vitamin D3] 5,000 unit PO WEEKLY 04/05/18 Glucosamine Sulfate Dipot Chlr [Glucosamine] 1,000 mg PO DAILY 04/05/18 Multivitamin [Multiple Vitamins] 1 each PO DAILY 04/05/18 Amlodipine Besylate [Norvasc -] 5 mg PO DAILY #60 tablet 12/26/19 Atorvastatin Ca [Lipitor] 20 mg PO HS #60 tablet 12/26/19 Clopidogrel Bisulfate [Plavix -] 75 mg PO DAILY #60 tablet 12/26/19 Losartan 50Mg/Hctz 12.5MG [Hyzaar -] 1 tab PO DAILY #60 tablet 12/26/19 Problem List - Problems (1) Chest pain Assessment/Plan: chest pain resolved. per cardiology, hold beta blockers in view of resting bradycardia. continue cozaar 50mg daily continue norvasc 5mg daily Start Plavix 75mg daily Continue crestor 10mg, lipitor 20mg daily follow up outpt with Dr. August patient agrees to follow up Code(s): R07.9 - CHEST PAIN, UNSPECIFIED (2) Near syncope Assessment/Plan: resolved. no dizziness, gait steady brain mri negative outpatient follow up with neurologist Code(s): R55 - SYNCOPE AND COLLAPSE (3) Palpitations Assessment/Plan: resolved Code(s): R00.2 - PALPITATIONS This patient is new to me today: Yes Date on this admission: 01/05/20 Emergency Visit: Yes ED Registration Date: 12/25/19 Care time: The patient presented to the Emergency Department on the above date and was hospitalized for further evaluation of their emergent condition. Critical Care patient: No - Discharge Referral Referred to [facility] No
[2019-12-26] MEDS ORDERED: LOSARTAN POTASSIUM 25 MG TABLET PO SCH (22:00)
[2019-12-26] MEDS ORDERED: ATORVASTATIN CA 20 MG TABLET (FP) PO SCH (22:00)
[2019-12-27] MEDS ORDERED: CLOPIDOGREL BISULFATE 75 MG TABLET (FP) PO SCH (10:00)
== END 2019-12-26 17:45 | disposition home or self-care (01) ==
LOC: JER 18:53 → JERBED 21:50 → J7W 12-26 15:32
PROVIDERS: ADMIT Internal Medicine; ATTEND Nurse Practitioner Family
PROC: 3E023GC Introduction of Other Therapeutic Substance into Muscle, Percutaneous Approach (ICD-10-PCS; principal; 2019-12-25)
PROC: 3E0337Z Introduction of Electrolytic and Water Balance Substance into Peripheral Vein, Percutaneous Approach (ICD-10-PCS; 2019-12-25)
DX: R07.9 Chest pain, unspecified (principal); R42 Dizziness and giddiness; K21.9 Gastro-esophageal reflux disease without esophagitis; R94.6 Abnormal results of thyroid function studies; K29.70 Gastritis, unspecified, without bleeding; Z82.3 Family history of stroke; Z82.49 Family history of ischemic heart disease and other diseases of the circulatory system; Z91.040 Latex allergy status; Z88.0 Allergy status to penicillin; Z88.9 Allergy status to unspecified drugs, medicaments and biological substances; Z83.3 Family history of diabetes mellitus; Z29.9 Encounter for prophylactic measures, unspecified
CPT/HCPCS: 36415; 70450-TC; 70551-TC; 71046-TC-FY; 80053; 80061; 81003; 82550; 83721; 83735; 84100; 84436; 84443; 84479; 84484; 85025; 85027; 85610; 85730; 93005; 93010; 96360; 96372; 99285-25; G0378; U0003

== ENCOUNTER 2022-12-04 05:36 | Day surgery (SDC) | payer OTHER ==
[2022-12-03 11:32] VITALS: BMI 19.9
[2022-12-04 08:57] VITALS: TEMP 97.8
[2022-12-04 09:39] VITALS: BP 163/69; PULSE 65; RESP 18
== END 2022-12-04 09:45 | disposition home or self-care (01) ==
LOC: JASU-ENDO 05:36
PROVIDERS: ATTEND Internal Medicine Gastroenterology
PROC: 0DB98ZX Excision of Duodenum, Via Natural or Artificial Opening Endoscopic, Diagnostic (ICD-10-PCS; 2022-12-04)
PROC: 0DB78ZX Excision of Stomach, Pylorus, Via Natural or Artificial Opening Endoscopic, Diagnostic (ICD-10-PCS; 2022-12-04)
PROC: 0DB28ZX Excision of Middle Esophagus, Via Natural or Artificial Opening Endoscopic, Diagnostic (ICD-10-PCS; 2022-12-04)
PROC: 0DB38ZX Excision of Lower Esophagus, Via Natural or Artificial Opening Endoscopic, Diagnostic (ICD-10-PCS; 2022-12-04)
PROC: 0DBP8ZX Excision of Rectum, Via Natural or Artificial Opening Endoscopic, Diagnostic (ICD-10-PCS; principal; 2022-12-04 08:00)
DX: Z12.11 Encounter for screening for malignant neoplasm of colon (principal); K62.1 Rectal polyp; K64.8 Other hemorrhoids; K59.89 Other specified functional intestinal disorders; Z86.010 Personal history of colon polyps; K29.50 Unspecified chronic gastritis without bleeding; K21.00 Gastro-esophageal reflux disease with esophagitis, without bleeding; R13.10 Dysphagia, unspecified; I10 Essential (primary) hypertension
CPT/HCPCS: 88305-TC; 88342-TC